=== PATIENT | male | born 1985 | race American Indian/Alaskan Native ===

== ENCOUNTER 2020-07-08 01:03 | Emergency (ER) | payer SELFPAY ==
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
[2020-07-08] MEDS ORDERED: IBUPROFEN 600 MG TAB PO ONE (04:50)
[2020-07-08] MEDS ORDERED: oxyCODONE /ACETAMINOPHEN 5-325MG TAB PO ONE (04:50)
[2020-07-08] MEDS: ONDANSETRON 4 MG ODT TAB PO ONE ×2 (04:54)
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
[2020-07-08 06:13] VITALS: BP 117/56
== END 2020-07-08 07:34 | disposition other institution (70) ==
LOC: ED 01:03
DX: S32.009A Unspecified fracture of unspecified lumbar vertebra, initial encounter for closed fracture (principal); G44.209 Tension-type headache, unspecified, not intractable; F17.200 Nicotine dependence, unspecified, uncomplicated; Y04.8XXA Assault by other bodily force, initial encounter; Y93.89 Activity, other specified; Y92.89 Other specified places as the place of occurrence of the external cause; Y99.8 Other external cause status
CPT/HCPCS: 70450; 72125; 72131; Q0162